=== PATIENT | female | born 2000 | race Caucasian/White ===

== ENCOUNTER 2024-12-15 16:41 | Emergency (ER) | payer OTHER, SELFPAY ==
[2024-12-15 16:55] VITALS: BP 132/89
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
[2024-12-15] MEDS: MOTRIN 400 MG PO (18:20)
== END 2024-12-15 18:38 | disposition home or self-care (01) ==
LOC: EMR 16:41
PROVIDERS: EMERGENCY PHYSICIAN Emergency Medicine; FAMILY PHYSICIAN Nurse Practitioner Family
DX: S60.00XA Contusion of unspecified finger without damage to nail, initial encounter (principal); S06.0X0A Concussion without loss of consciousness, initial encounter; V89.2XXA Person injured in unspecified motor-vehicle accident, traffic, initial encounter; Y92.410 Unspecified street and highway as the place of occurrence of the external cause
CPT/HCPCS: 99283; 73140